=== PATIENT | male | born 1960 | race African-American/Black ===

== ENCOUNTER → 2016-07-22 | Emergency (ER) | payer OTHER ==
[~2016-07-22] VITALS: Ht 182.9 cm; Wt 86.7 kg
[~2016-07-22] MED LIST: ALLOPURINOL100 MG PO; AMLODIPINE BESY10 MG PO; ASPIRIN EC325 MG PO; CARBAMAZEPINE300 MG PO; CARVEDILOL3.125 MG PO; FOLIC ACID1 MG PO; GABAPENTIN100 MG PO; KEPPRA1000 MG PO; LEVETIRACETAM750 MG PO; LISINOPRIL40 MG PO; NAPROSYN500 MG PO; NORCO 5/3251 TABLET PO; PRAVASTATIN SOD40 MG PO; SPIRONOLACTONE25 MG PO; VITAMIN B-1100 MG PO
[2016-07-22 22:27] VITALS: BP 116/78
== END | disposition home or self-care (01) ==
LOC: EME 20:50
DX: M54.31 Sciatica, right side (principal); I10 Essential (primary) hypertension; Z79.82 Long term (current) use of aspirin; Z87.891 Personal history of nicotine dependence
CPT/HCPCS: 99281; 99284; J8540

== ENCOUNTER 2017-04-10 19:54 | Emergency (ER) | payer OTHER ==
[~2017-04-10] VITALS: Ht 182.9 cm; Wt 76.4 kg
[2017-04-10 22:32] VITALS: BP 121/73
[2017-04-10] MEDS ORDERED: MEDROL DOSEPAK4 MG PO (22:36)
[2017-04-10] MEDS ORDERED: PERCOCET 5/31 TABLET PO (22:36)
[2017-04-10] MEDS ORDERED: DILAUDID2 MG PO (23:14)
== END 2017-04-10 23:27 | disposition home or self-care (01) ==
LOC: EME 19:54
DX: M13.872 Other specified arthritis, left ankle and foot (principal); M13.871 Other specified arthritis, right ankle and foot; G89.29 Other chronic pain; M77.32 Calcaneal spur, left foot; M77.31 Calcaneal spur, right foot; I10 Essential (primary) hypertension; Z79.82 Long term (current) use of aspirin
CPT/HCPCS: 73630; 99281; 99284; J3010; J7512

== ENCOUNTER 2017-06-08 14:02 | Inpatient (IN) | payer OTHER ==
[~2017-06-08] VITALS: Ht 182.9 cm; Wt 51.8 kg
[~2017-06-08 14:02] MED LIST changes: +DILAUDID2 MG PO; +MEDROL DOSEPAK4 MG PO; +PERCOCET 5/31 TABLET PO
[2017-06-08 14:45] LABS: HEMATOCRIT 38.1 % (38.0-50.0); HEMOGLOBIN 12.8 G/DL (12.5-16.6); MCH 31.1 PG (29.0-34.0); MCHC 33.6 G/DL (30.0-36.0); RBC DIS.WIDTH-CV 16.5 % (11.8-14.6); RED BLOOD COUNT 4.12 M/uL (4.00-5.50); WHITE BLOOD COUNT 19.2 K/uL (4.1-10.2)
[2017-06-08 14:46] LABS: MCV 92.5 FL (86-99); PLATELET COUNT 284 K/uL (156-360)
[2017-06-08 14:57] LABS: CHLORIDE 103 mEq/L (99-109); SODIUM 134 mEq/L (136-147)
[2017-06-08 14:59] LABS: GLUCOSE 146 mg/dL (70-99); TOTAL PROTEIN 7.6 g/dL (6.4-8.3)
[2017-06-08 15:01] LABS: TOTAL BILIRUBIN 0.9 mg/dL (0.0-1.0)
[2017-06-08 15:02] LABS: ALKALINE PHOSPHATASE 72 IU/L (3-129)
[2017-06-08 15:03] LABS: GFR ESTIMATE (CALCULATED) > 59 mL/min/ (58.99-99999)
[2017-06-08 15:04] LABS: AST (GOT) 18 IU/L (2-34); DIRECT BILIRUBIN 0.5 mg/dL (0.0-0.3); UREA NITROGEN (BUN) 15 mg/dL (9-23)
[2017-06-08 15:06] LABS: ALT (GPT) 10 IU/L (3-49); CREATINE KINASE 51 IU/L (1-294); TOTAL CK 51 IU/L (1-294); URIC ACID 8.4 mg/dL (3.1-9.2)
[2017-06-08 15:12] LABS: CK-MB 0.6 ng/mL (0.0-4.9); CKMB RELATIVE INDEX 1.2 (0.0-3.9)
[2017-06-08 16:09] LABS: APPEARANCE CLEAR ((CLEAR)); BILIRUBIN NEGATIVE; BLOOD SMALL; COLOR AMBER ((YELLOW)); GLUCOSE (STRIP) NEGATIVE; KETONES NEGATIVE; LEUKOCYTES NEGATIVE; NITRITE NEGATIVE; PROTEIN (STRIP) 30; SPECIFIC GRAVITY 1.024 (1.000-1.030)
[2017-06-08 16:15] LABS: BACTERIA RARE /HPF; EPITHELIAL CELLS NONE SEEN /HPF; MUCUS TRACE /LPF; WHITE BLOOD CELLS 0-5 /HPF (0-5)
[2017-06-08] MEDS ORDERED: NEURONTIN300 MG PO (18:04)
[2017-06-08] MEDS ORDERED: MULTI-VITAMIN1 EAC3 PO (18:06)
[2017-06-08] MEDS ORDERED: ANECREAM30 GM TP (18:06)
[2017-06-08] MEDS ORDERED: DEPAKOTE ER500 MG PO (18:08)
[2017-06-08] MEDS ORDERED: COLCRYS0.6 MG PO (18:10)
[2017-06-08 20:38] VITALS: BP 149/77
[2017-06-09 00:16] VITALS: BP 158/80
[2017-06-09 03:54] VITALS: BP 143/75
[2017-06-09 06:25] LABS: HEMATOCRIT 29.3 % (38.0-50.0); HEMOGLOBIN 9.8 G/DL (12.5-16.6); MCH 31.8 PG (29.0-34.0); MCHC 33.4 G/DL (30.0-36.0); MCV 95.1 FL (86-99); PLATELET COUNT 230 K/uL (156-360); RBC DIS.WIDTH-CV 16.5 % (11.8-14.6); RBC DIS.WIDTH-SD 57.7 % (39-53); RED BLOOD COUNT 3.08 M/uL (4.00-5.50); WHITE BLOOD COUNT 15.7 K/uL (4.1-10.2)
[2017-06-09 06:31] LABS: ALKALINE PHOSPHATASE 46 IU/L (3-129); ALT (GPT) 7 IU/L (3-49); AST (GOT) 16 IU/L (2-34); CHLORIDE 110 MEQ/L (99-109); CREATININE 1.2 MG/DL (0.6-1.3); GFR ESTIMATE (CALCULATED) > 59 mL/min/ (58.99-99999); POTASSIUM 3.8 MEQ/L (3.7-5.4); SODIUM 138 MEQ/L (136-147); TOTAL BILIRUBIN 0.7 MG/DL (0.0-1.0); TOTAL PROTEIN 5.2 G/DL (6.4-8.3); UREA NITROGEN (BUN) 17 mg/dL (9-23)
[2017-06-09 06:32] LABS: GLUCOSE 97 mg/dL (70-99)
[2017-06-09 08:00] VITALS: BP 149/77
[2017-06-09 09:02] LABS: ERTH.SED.RATE 75 MM/HR (0-20)
[2017-06-09 19:00] VITALS: BP 159/82
[2017-06-09 22:36] VITALS: BP 154/77
[2017-06-09 23:02] VITALS: BP 154/77
[2017-06-10 04:07] VITALS: BP 141/81
[2017-06-10 08:17] VITALS: BP 161/84
[2017-06-10 11:39] LABS: C4 COMPLEMENT 59 MG/DL (10-40)
[2017-06-10 11:41] VITALS: BP 158/87
[2017-06-10 16:48] VITALS: BP 157/87
[2017-06-10 20:35] VITALS: BP 155/83
[2017-06-11] VITALS (7 sets, daily range): BP systolic 135–182; BP diastolic 83–96
[2017-06-11 06:35] LABS: CREATININE 0.9 MG/DL (0.6-1.3); GFR ESTIMATE (CALCULATED) > 59 mL/min/ (58.99-99999)
[2017-06-12 07:19] VITALS: BP 190/93
[2017-06-12 13:17] LABS: Neutrophil Cytoplasmic Aby Negative (Negative)
[2017-06-12 15:07] VITALS: BP 175/91
[2017-06-12 23:30] VITALS: BP 168/87
[2017-06-13 07:27] VITALS: BP 178/94
[2017-06-13 16:00] VITALS: BP 171/95
[2017-06-13] MEDS ORDERED: AMOX TR-K CLV1 EAC4 PO (18:06)
[2017-06-13] MEDS ORDERED: PREDNISONE20 MG PO (18:06)
[2017-06-13] MEDS ORDERED: LISINOPRIL40 MG PO (18:06)
== END 2017-06-13 20:00 | disposition home or self-care (01) | DRG 202 ==
LOC: EME 14:02 → EDOF 18:40 → 5EAST 18:40 → ENRESERV 19:02 → 5EAST 20:19
PROVIDERS: Internal Medicine; Internal Medicine Pulmonary Disease; Nurse Practitioner Family
DX: J20.9 Acute bronchitis, unspecified (principal); J44.0 Chronic obstructive pulmonary disease with (acute) lower respiratory infection; J84.9 Interstitial pulmonary disease, unspecified; J84.10 Pulmonary fibrosis, unspecified; E87.1 Hypo-osmolality and hyponatremia; M10.9 Gout, unspecified; I10 Essential (primary) hypertension; E78.5 Hyperlipidemia, unspecified; G40.909 Epilepsy, unspecified, not intractable, without status epilepticus; D64.9 Anemia, unspecified; G62.9 Polyneuropathy, unspecified; I27.20 Pulmonary hypertension, unspecified; R26.2 Difficulty in walking, not elsewhere classified; Z87.891 Personal history of nicotine dependence; F12.90 Cannabis use, unspecified, uncomplicated; M19.90 Unspecified osteoarthritis, unspecified site; E86.0 Dehydration; Z86.73 Personal history of transient ischemic attack (TIA), and cerebral infarction without residual deficits
CPT/HCPCS: 71046; 71250; 73560; 80048; 80053; 80076; 80164; 80177 90; 80202; 81003; 82550; 82553; 82565; 82948; 83605; 84550; 85027; 85651; 86021 90; 86038; 86140; 86160; 86162 90; 86430; 86738 90; 87040; 87449; 87502; 90686; 93306; 99202; 99281; 99284; J2270; J2543; J3260; J3370; J7030; J7050; J7512